=== PATIENT | male | born 1965 | race Caucasian/White ===

== ENCOUNTER 2017-01-04 07:57 | Day surgery (SDC) | payer BC, OTHER ==
[2017-01-04] VITALS (22 sets, daily range): BP systolic 78–140; BP diastolic 46–89; PULSE 61–100; RESP 13–26; TEMP 98.3–99.6; O2SAT 93–100; Ht 177.8 cm; Wt 56.4 kg
[~2017-01-04] VITALS: Ht 177.8 cm; Wt 56.4 kg
[~2017-01-04 07:57] MED LIST: LIDOCAINE 1% (10mg/ml) 2ml SDV INJ ONE; LR 1,000 ML IV SCH; QUET25TA73 PO
--- OUTSIDE RECORDS SUMMARY | 2017-01-04 08:01 | XMS REPORT | Continuity of Care Document ---
Author Author [facility] Organization [facility] Address Unknown Phone Unavailable Allergies Active Description Code Type Severity Reaction Onset Reported/Identified Relationship to Patient Clinical Status Yes sulfanilamide topical NKMA N/A Hives/Skin Rash 12/11/2013 Medications Problems Procedures Results Encounters ACCT No. Visit Date/Time Discharge Status Pt. Type Provider Facility Loc./Unit Complaint [id number] 03/25/2015 14:53:00 2014 23:59:00 DIS Outpatient Junito Clarke [facility] New FM new to est was bhavin pt
--- OUTSIDE RECORDS SUMMARY | 2017-01-04 08:01 | XMS REPORT | Referral Summary ---
Author Author [facility] Organization [facility] Address Unknown Phone Unavailable Care Team Providers Care Doctor Of Nurse Anesthesia Name Role Phone Tiffani Clarke Primary Care Physician [phone] Encounter VC Date(s): 03/25/15 - 03/25/15 [facility] [place] [id number] Discharge Disposition: 01-Home or Self Care Attending Physician: Junito Clarke MD Admitting Physician: Junito Clarke MD Vital Signs Most recent to 1 oldest [Reference Range]: Temperature Tympanic 36.7 degC [36.6-38.1 degC] (03/25/15 3:01 PM) Peripheral Pulse 68 bpm Rate [60-100 bpm] (03/25/15 3:01 PM) Respiratory Rate 14 br/min [14-20 br/min] (03/25/15 3:01 PM) Blood Pressure 98/62 mmHg [90-140/60-90 mmHg] (03/25/15 3:01 PM) Problem List Condition Effective Dates Status Health Status Informant Abnormal weight Active loss(Confirmed) Insomnia Active (disorder)(Confirmed ) Urethral stricture Active (disorder)(Confirmed ) Allergies, Adverse Reactions, Alerts Substance Reaction Severity Status sulfanilamide topical Hives/Skin Rash Active Medications zolpidem 10 mg oral tablet 10 mg 1 tabs, Oral, Bedtime (once a day), as needed for sleep, 1 month last fill until pt has appt, # 30 tabs, 11 Refill(s) Start Date: 04/27/15 Status: Ordered Results No data available for this section Immunizations Vaccine Date Refusal Reason influenza virus vaccine, live 05/10/13 influenza virus vaccine, live 05/15/12 tetanus/diphtheria/pertussis, acel(Tdap) 02/25/08 Procedures No data available for this section Social History Social History Type Response Smoking Status Current every day smoker; Type: Cigarettes; Tobacco use per day: Pack Assessment and Plan Extracted from: Title: Office Visit Note Author: Junito Clarke MD Date: 03/25/15 Assessment/Plan Insomnia (disorder) Plan: Keep current medication and follow-up in 12 months. Call if you're having a problems with medication. Orders: zolpidem, 10 mg 1 tabs, Oral, Bedtime (once a day), as needed for sleep, 1 month last fill until pt has appt, # 30 tabs, 11 Refill(s)
[2017-01-04] MEDS ORDERED: MELA1TAB21 (08:19)
[2017-01-04] MEDS ORDERED: FENTANYL 100mcg/2ml INJECTION ONE (10:30)
[2017-01-04] MEDS ORDERED: MIDAZOLAM 5mg/5ml INJECTION ONE (10:30)
[2017-01-04] MEDS ORDERED: SALINE FLUSH 10ml SYRINGE ONE (10:31)
[2017-01-04] MEDS ORDERED: MIDAZOLAM 5mg/5ml INJECTION IV PRN (10:34)
[2017-01-04] MEDS ORDERED: FENTANYL 100mcg/2ml INJECTION IV PRN (10:34)
[2017-01-04] MEDS ORDERED: MIDAZOLAM 2mg/2ml INJECTION ONE ×2 (11:01→11:06)
[2017-01-04] MEDS ORDERED: GLUCAGON 1 MG INJECTION IV PRN (11:08)
[2017-01-04] MEDS ORDERED: GLUCAGON 1 MG INJECTION ONE (11:21)
[2017-01-04] MEDS ORDERED: ONDANSETRON 4mg/2ml INJECTION IV ONE (11:22)
[2017-01-04] MEDS ORDERED: ONDANSETRON 4mg/2ml INJECTION ONE (11:27)
--- NOTE | 2017-01-04 14:50 | OPNOTEF ---
DATE OF PROCEDURE: 01/04/2017 PHYSICIAN: Luis Alfredo Ching DO PROCEDURE: Colonoscopy. INDICATION FOR PROCEDURE Colorectal cancer screening. ASA CLASSIFICATION: 1 DESCRIPTION OF PROCEDURE Consent was signed and on the chart. Routine monitoring with ECG, continuous oximetry and noninvasive blood pressure was performed throughout the procedure and found to be within normal limits. IV sedation was performed with a total of 9 mg of Versed and 90 mcg of fentanyl. He was also given 2 amps of glucagon before the procedure and 8 mg of Zofran. Prior to the procedure the patient was brought to the endoscopy lab where a brief review of his medical history and physical exam was performed. The procedure was described to him and he was agreeable to continue. All questions were answered. He was given IV sedation and placed in left lateral decubitus position. A digital rectal exam revealed a normal size and contour prostate. No masses. The colonoscope was introduced through the anal verge and advanced to the cecum. Upon reaching the cecum, careful inspection of the mucosa was performed. Polyps were removed at the level of the cecum. Two different polyps were removed from the ascending colon and two different polyps removed from the rectum at about 10 cm. He tolerated the procedure well. The only complication was initially he had a low blood pressure and he had some nausea with emesis during the procedure for which he was given Zofran. IMPRESSION Polyps removed from the cecum, two from the ascending colon and two at 10 cm. RECOMMENDATION 1. Review the path report when available. 2 Repeat as indicated. MTDD
== END 2017-01-04 12:51 | disposition home or self-care (01) ==
LOC: NSC 07:57
PROVIDERS: ATTEND Internal Medicine
DX: Z12.11 Encounter for screening for malignant neoplasm of colon (principal); D12.0 Benign neoplasm of cecum; D12.2 Benign neoplasm of ascending colon; D12.6 Benign neoplasm of colon, unspecified; R03.1 Nonspecific low blood-pressure reading; R11.2 Nausea with vomiting, unspecified; F17.290 Nicotine dependence, other tobacco product, uncomplicated; G47.00 Insomnia, unspecified; Z79.899 Other long term (current) drug therapy
CPT/HCPCS: J1610